=== PATIENT | female | born 2005 | race Two or more races ===

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

== ENCOUNTER 2024-07-10 23:13 | Emergency (ER) | payer OTHER ==
--- NOTE | 2024-07-10 23:39 | ED ---
Lower Extremity Injury HPI - General Chief Complaint: Extremity Injury, Lower Stated Complaint: left foot pain Time Seen by Provider: 07/10/24 23:29 Source: patient, RN notes reviewed Mode of arrival: ambulatory Limitations: no limitations - History of Present Illness Initial Comments: 18-year-old female presenting to emergency department for complaint of left ankle pain. Patient states that on of this week she was walking outside when she rolled her left ankle walking down a curb of the sidewalk was before meals and slipped. Patient denies falling, hitting her head, loss conscious time of fall. Patient states that she has been using her cousins a boot from a previous injury however symptoms have persisted of pain. She endorses pain with ambulation. Denies previous surgeries of the left ankle. She has been elevating her ankle in addition to icing and using Tylenol and Motrin with minimal relief in symptoms. - Related Data Home Medications Medication Instructions Recorded Confirmed Acetaminophen Tab [Tylenol Tab] 500 mg PO Q6HR PRN 11/03/22 11/03/22 Previous Rx's Medication Instructions Recorded Ibuprofen [Motrin] 600 mg PO Q8HR PRN #30 tab 11/05/22 guaiFENesin-DM 100-10MG/5ML 10 ml PO Q6HR #4 oz 09/07/23 [Robitussin DM] predniSONE 50 mg PO DAILY #5 tab 09/07/23 Erythromycin Ophth Oint [Romycin 1 applic LEFT EYE QID 7 Days #1 gm 10/05/23 Ophth Oint] Allergies Allergy/AdvReac Type Severity Reaction Status Date / Time codeine Allergy Swelling Verified 07/10/24 23:22 Review of Systems ROS Statement: Those systems with pertinent positive or pertinent negative responses have been documented in the HPI. ROS Other: All systems not noted in ROS Statement are negative. Past Medical History Past Medical History: No Reported History History of Any Multi-Drug Resistant Organisms: None Reported Past Surgical History: Cholecystectomy Past Anesthesia/Blood Transfusion Reactions: No Reported Reaction Past Psychological History: No Psychological Hx Reported Smoking Status: Vaper Past Alcohol Use History: None Reported Past Drug Use History: Marijuana General Exam Limitations: no limitations General appearance: alert, in no apparent distress ENT exam: Present: normal exam, mucous membranes moist Neck exam: Present: normal inspection. Absent: tenderness, meningismus, lymphadenopathy Respiratory exam: Present: normal lung sounds bilaterally. Absent: respiratory distress, wheezes, rales, rhonchi, stridor Cardiovascular Exam: Present: regular rate, normal rhythm, normal heart sounds. Absent: systolic murmur, diastolic murmur, rubs, gallop, clicks GI/Abdominal exam: Present: soft, normal bowel sounds. Absent: distended, tenderness, guarding, rebound, rigid Left Ankle exam: Present: tenderness, swelling, ecchymosis. Absent: deformity Neurovascular tendon exam: Present: no vascular compromise Gait: not tested/not observed Back exam: Present: normal inspection Course Vital Signs 07/10/24 07/11/24 23:22 00:55 Temperature 97.8 F 97.8 F Pulse Rate 96 76 Respiratory 18 18 Rate Blood Pressure 165/99 152/93 O2 Sat by Pulse 98 98 Oximetry Procedures - Orthopedic Splinting/Casting Injury #1 Side: left Lower Extremity Injury Location: short leg, ankle Lower Extremity Immobilizer: Baldo wrap, synthetic pre-padded splint Medical Decision Making - Medical Decision Making Was pt. sent in by a medical professional or institution (, PA, [employer]OTH[employer] DRIER ASSEMBLER, urgent care, hospital, or prison...) When possible be specific @ -No Did you speak to anyone other than the patient for history (EMS, parent, family, police, friend...)? What history was obtained from this source @ -No Did you review nursing and triage notes (agree or disagree)? Why? @ -I reviewed and agree with nursing and triage notes Were old charts reviewed (outside hosp., previous admission, EMS record, old EKG, old radiological studies, urgent care reports/EKG's, prison records)? Report findings @ -No old charts were reviewed Differential Diagnosis (chest pain, altered mental status, abdominal pain women, abdominal pain men, vaginal bleeding, weakness, fever, dyspnea, syncope, headache, dizziness, GI bleed, back pain, seizure, CVA, palpatations, mental health, musculoskeletal)? @ -Differential Musculoskeletal Muscular strain, contusion, ligament sprain, fracture, arthritis, septic arthritis, bursitis, cellulitis, muscle spasm, nerve compression, DVT, arterial occlusion, herpes zoster, electrolyte abnormality, tumor.... This is not meant to be in all inclusive list EKG interpreted by me (3pts min.). @ -none X-rays interpreted by me (1pt min.). @ -X-ray of the left ankle obtained revealing a nondisplaced transverse fracture of the lateral malleolus 1.7 cm from the inferior tip. CT interpreted by me (1pt min.). @ -None done U/S interpreted by me (1pt. min.). @ -None done What testing was considered but not performed or refused? (CT, X-rays, U/S, labs)? Why? @ -None What meds were considered but not given or refused? Why? @ -None Did you discuss the management of the patient with other professionals (professionals i.e. [employer], PA, [employer] ASSEMBLER, lab, RT, psych nurse, social science analyst, college and career counselor, teacher, surface to air weapons officer, home health care case manager)? Give summary @ -No Was smoking cessation discussed for >3mins.? @ -No Was critical care preformed (if so, how long)? @ -No Were there social determinants of health that impacted care today? How? (Homelessness, low income, unemployed, alcoholism, drug addiction, transportation, low edu. Level, literacy, decrease access to med. care, [facility], rehab)? @ -No Was there de-escalation of care discussed even if they declined (Discuss DNR or withdrawal of care, Hospice)? DNR status @ -No What co-morbidities impacted this encounter? (DM, HTN, Smoking, COPD, CAD, Cancer, CVA, ARF, Chemo, Hep., AIDS, mental health diagnosis, sleep apnea, morb id obesity)? @ -None Was patient admitted / discharged? Hospital course, mention meds given and route, prescriptions, significant lab abnormalities, going to OR and other pertinent info. @ -Discharge. 18-year-old female presenting to emergency department with left ankle pain. There is noted ecchymosis and edema of the lateral left ankle and pain with range of motion. She is neurovascularly intact of the ankle. She is provided with medication for pain. X-ray reveals a fracture. She is placed in a posterior short leg splint and provided with crutches and referral to training and documentation specialist. Supportive treatment discussed at bedside. Case discussed with Dr. Pollock Undiagnosed new problem with uncertain prognosis? @ -No Drug Therapy requiring intensive monitoring for toxicity (Heparin, Nitro, Insulin, Cardizem)? @ -No Were any procedures done? @ -orthopedic splinting, see procedure note Diagnosis/symptom? @ -ankle fracture Acute, or Chronic, or Acute on Chronic? @ -acute Uncomplicated (without systemic symptoms) or Complicated (systemic symptoms)? @ -uncomplicated Side effects of treatment? @ -No Exacerbation, Progression, or Severe Exacerbation? @ -No Poses a threat to life or bodily function? How? (Chest pain, [place], [place], pneumonia, PE, COPD, DKA, ARF, appy, cholecystitis, CVA, Diverticulitis, Homicidal, Suicidal, threat to staff... and all critical care pts) @ -No Disposition Clinical Impression: Ankle fracture Disposition: HOME SELF-CARE Condition: Good Instructions (If sedation given, give patient instructions): Ankle Fracture (ED) Additional Instructions: Please return to the Emergency Department if symptoms worsen or any other concerns. Continue to rest, ice, elevate and use Tylenol Motrin as needed for pain relief. Keep splint in place and maintain nonweightbearing status until follow-up with provided training and documentation specialist. Is patient prescribed a controlled substance at d/c from ED?: No Referrals: Judd Beard MD [Primary Care Provider] - 1-2 days Zia Prabhakar MD [STAFF PHYSICIAN] - 1-2 days Time of Disposition: 00:29
[2024-07-10 23:42] VITALS: RESP 18; TEMP 97.8
[2024-07-10] MEDS: IBUPROFEN 800 MG TAB PO STA (23:48)
--- NOTE | 2024-07-11 00:20 | XR ---
EXAM: XR Left Ankle Complete, 3 or More Views CLINICAL HISTORY: XR Reason: injury on , pain, ecchymosis TECHNIQUE: Frontal, lateral and oblique views of the left ankle. COMPARISON: No relevant prior studies available. FINDINGS: Bones/joints: Transverse fracture through the distal fibula okay 1.7 cm from the inferior tip. This is nondisplaced. The ankle mortise joint remains normally aligned. The tibia is intact. Soft tissues: Soft tissue swelling over the lateral aspect of the ankle. There is a small joint effusion. IMPRESSION: Nondisplaced transverse fracture through the lateral malleolus 1.7 cm from the inferior tip.
[2024-07-11 00:57] VITALS: BP 152/93; PULSE 76
== END 2024-07-11 01:02 | disposition home or self-care (01) ==
LOC: EEVIPCON 23:13 → EC 23:13
DX: S82.65XA Nondisplaced fracture of lateral malleolus of left fibula, initial encounter for closed fracture (principal); F17.290 Nicotine dependence, other tobacco product, uncomplicated; Z88.5 Allergy status to narcotic agent; X50.1XXA Overexertion from prolonged static or awkward postures, initial encounter; Y93.01 Activity, walking, marching and hiking; Y92.480 Sidewalk as the place of occurrence of the external cause
CPT/HCPCS: 29515; 99283